=== PATIENT | male | born 1945 | race African-American/Black ===

== ENCOUNTER 2023-06-09 16:10 | Observation (INO) | payer OTHER ==
[2023-06-09 17:21] LABS: #Eosinphils 0.1 thou/uL (0.0-0.7); #Monocytes 0.1 thou/uL (0.11-0.59); #Neutrophils 2.4 thou/uL (1.40-6.50); %Basophils 0.5 % (0.0-1.0); %Eosinophils 3.3 % (0.0-10.0); %Lymphocytes 30.8 % (21.0-51.0); %Monocytes 3.3 % (0.0-10.0); %Neutrophils 61.6 % (42.0-75.0); Hematocrit 33.9 % (42.0-52.0); Hemoglobin 11.9 g/dL (14.0-18.0); Mean Corpuscular HGB CONC 35.1 g/dL (32.0-36.0); Mean Corpuscular Hemoglobin 31.2 pg (27.0-31.0); Mean Platelet Volume 12.4 fL (7.4-10.4); RBC Distribution Width 16.4 % (11.5-14.5); Red Blood Cell (RBC) Count 3.81 mill/uL (4.70-6.10); White Blood Cell (WBC) Count 3.9 10x3/uL (4.8-10.8)
[2023-06-09 17:28] LABS: Platelet Count 77 10x3/uL (130-400)
[2023-06-09 17:36] LABS: Bacteria/HPF None Seen HPF (None Seen); Bilirubin Negative (Negative); Blood, Urine Negative (Negative); CAUTI Indications for Culture Dysuria,urgency,freq; Clarity Clear (Clear); Glucose, Urine (Dipstick) Greater than 1000 mg/dL (Negative); Ketone, Urine Negative (Negative); Leukocyte Negative Leu/uL (Negative); Nitrite Negative (Negative); Protein, Urine (Dipstick) Negative (Neg-Trace); RBC/HPF 0-3 HPF (0-3); Specific Gravity, Urine 1.029 (1.002-1.036); Squamous Epithelial None Seen HPF (0-3); Urobilinogen Normal mg/dL (Less than 2); WBC/HPF 0-3 HPF (0-3)
[2023-06-09 17:44] LABS: Urine Culture Reflex No No
[2023-06-09 17:47] LABS: ALT (SGPT) 21 U/L (8-55); AST (SGOT) 9 U/L (5-34); Albumin 3.8 g/dL (3.4-4.8); Alkaline Phosphatase 152 U/L (40-110); Anion Gap 14 mmol/L (10-20); BUN (Urea Nitrogen) 25 mg/dL (8.4-25.7); Bilirubin, Total 0.4 mg/dL (0.2-1.2); Calc. Creatinine Clearance 0 mL/min (70-130); Calcium 8.8 mg/dL (7.8-10.44); Carbon Dioxide 21 mmol/L (23-31); Chloride 98 mmol/L (98-107); Estimated GFR 31; Globulin 2.5 g/dL (2.4-3.5); Magnesium 2.1 mg/dL (1.6-2.6); Protein, Total 6.3 g/dL (5.8-8.1); Sodium 128 mmol/L (136-145); Troponin I Less than 0.010 ng/mL (< 0.028)
[2023-06-09 17:57] LABS: Glucose 757 mg/dL (83-110)
[2023-06-09 18:02] LABS: Actual Bicarbonate (HCO3v) 19.7 mEq/L (22-28); Base Excess -4.9 mEq/L (-2.0 to +3.0); Calcium, Ionized (venous) 1.12 mmol/L (1.16-1.32); Chloride (VBG) 99 mmol/L (98-106); Hematocrit-VBG 39 % (42.0-52.0); Hemoglobin (Hb) 13.2 g/dL (12.6-17.4); Sodium 130.8 mmol/L (133-146); pH (venous) 7.363 (7.32-7.43)
[2023-06-09] MEDS ORDERED: INSULIN REGULAR IN 0.9 % NACL 100 UNITS/100 ML BAG ONE (18:18)
[2023-06-09] MEDS ORDERED: Glucagon 1 MG/ML KIT IM PRN (20:14)
[2023-06-09] MEDS ORDERED: HumaLOG 300 UNITS/3 ML VIAL SC PRN ×2 (20:14)
[2023-06-09] MEDS ORDERED: Dextrose 5% in Water 1,000 ML IV PRN (20:14)
[2023-06-09] MEDS ORDERED: Calcium Carbonate 500 MG ChewTAB PO PRN (20:14)
[2023-06-09] MEDS ORDERED: Dextrose 50% Abboject 50 ML SYRINGE SLOW IVP PRN (20:14)
[2023-06-09] MEDS ORDERED: Acetaminophen 325 MG TAB PO PRN (20:14)
[2023-06-09] MEDS ORDERED: Ondansetron ODT 4 MG TAB PO PRN (20:14)
[2023-06-09] MEDS ORDERED: traMADol HCl 50 MG TAB PO PRN (20:27)
[2023-06-09] MEDS ORDERED: Lactated Ringer's 1,000 ML IV SCH (20:45)
[2023-06-09] MEDS ORDERED: Rosuvastatin 20 MG TAB PO SCH (21:00)
[2023-06-09] MEDS ORDERED: Famotidine 20 MG TAB PO SCH (21:00)
[2023-06-09] MEDS ORDERED: Mirtazapine 15 MG Soltab PO SCH (21:00)
[2023-06-09] MEDS: Insulin Regular 300 UNITS/3 ML VIAL IVP SCH (22:44)
[2023-06-09] MEDS: Sacubitril 24MG/Valsartan 26 MG TAB PO SCH (22:45)
[2023-06-09 23:21] VITALS: BMI 21.9
[2023-06-10] MEDS: Insulin Regular 300 UNITS/3 ML VIAL IVP SCH (03:04)
[2023-06-10 03:42] VITALS: TEMP 97.8
[2023-06-10 07:54] VITALS: BP 118/65
[2023-06-10] MEDS ORDERED: Sacubitril 24MG/Valsartan 26 MG TAB PO SCH (09:00)
[2023-06-10] MEDS ORDERED: Aspirin 81 mg Enteric Coated Tablet PO SCH (09:00)
[2023-06-10] MEDS ORDERED: Empagliflozin 25 MG TAB PO SCH ×2 (09:00→09:45)
[2023-06-10] MEDS ORDERED: Spironolactone 25 MG TAB PO SCH (09:00)
[2023-06-10] MEDS: Sacubitril 24MG/Valsartan 26 MG TAB PO SCH (09:38)
[2023-06-10] MEDS ORDERED: Insulin Glargine 30 UNITS/0.3 ML VIAL SC SCH (21:00)
[2023-06-11] MEDS ORDERED: Empagliflozin 25 MG TAB PO SCH (09:00)
== END 2023-06-10 11:32 | disposition home or self-care (01) ==
LOC: ERS 16:10 → T4-B 19:52
PROVIDERS: ADMIT Student in an Organized Health Care Education/Training Program; ATTEND Family Medicine
DX: E11.65 Type 2 diabetes mellitus with hyperglycemia (principal); I11.0 Hypertensive heart disease with heart failure; I50.9 Heart failure, unspecified; I25.10 Atherosclerotic heart disease of native coronary artery without angina pectoris; N17.9 Acute kidney failure, unspecified; C95.90 Leukemia, unspecified not having achieved remission; E78.5 Hyperlipidemia, unspecified; Z79.899 Other long term (current) drug therapy; Z79.82 Long term (current) use of aspirin; Z88.8 Allergy status to other drugs, medicaments and biological substances; Z79.4 Long term (current) use of insulin; Z95.1 Presence of aortocoronary bypass graft; Z95.0 Presence of cardiac pacemaker
CPT/HCPCS: 36416; 71045; 80053; 81001; 82010; 82805; 83735; 83930; 84484; 85025; 93005; 96365; G0378; J1815; J7120

== ENCOUNTER 2023-06-22 22:37 | Inpatient (IN) | payer OTHER ==
[2023-06-22 23:15] LABS: #Neutrophils 3.1 thou/uL (1.40-6.50); %Basophils 0.3 % (0.0-1.0); %Lymphocytes 13.4 % (21.0-51.0); %Monocytes 0.5 % (0.0-10.0); %Neutrophils 85.5 % (42.0-75.0); Hematocrit 39.3 % (42.0-52.0); Hemoglobin 13.7 g/dL (14.0-18.0); Mean Corpuscular HGB CONC 34.9 g/dL (32.0-36.0); Mean Corpuscular Hemoglobin 31.4 pg (27.0-31.0); Mean Corpuscular Volume 89.9 fl (78.0-98.0); Mean Platelet Volume 11.3 fL (7.4-10.4); Platelet Count 224 10x3/uL (130-400); RBC Distribution Width 16.4 % (11.5-14.5); Red Blood Cell (RBC) Count 4.37 mill/uL (4.70-6.10); White Blood Cell (WBC) Count 3.7 10x3/uL (4.8-10.8)
[2023-06-22 23:34] LABS: Albumin 4.4 g/dL (3.4-4.8)
[2023-06-22 23:35] LABS: Chloride 100 mmol/L (98-107); Sodium 128 mmol/L (136-145)
[2023-06-22 23:36] LABS: Calcium 10.1 mg/dL (7.8-10.44)
[2023-06-22 23:37] LABS: Globulin 2.8 g/dL (2.4-3.5); Protein, Total 7.2 g/dL (5.8-8.1)
[2023-06-22 23:38] LABS: Anion Gap 19 mmol/L (10-20); Bilirubin, Total 0.6 mg/dL (0.2-1.2); Carbon Dioxide 17 mmol/L (23-31)
[2023-06-22 23:39] LABS: Alkaline Phosphatase 137 U/L (40-110)
[2023-06-22 23:40] LABS: Calc. Creatinine Clearance 0 mL/min (70-130); Estimated GFR 25
[2023-06-22 23:41] LABS: BUN (Urea Nitrogen) 38 mg/dL (8.4-25.7)
[2023-06-22 23:42] LABS: ALT (SGPT) 12 U/L (8-55); AST (SGOT) 9 U/L (5-34)
[2023-06-22 23:42] LABS: Bacteria/HPF None Seen HPF (None Seen); Bilirubin Negative (Negative); Blood, Urine Negative (Negative); CAUTI Indications for Culture Pelvic or flank pain; Clarity Clear (Clear); Glucose, Urine (Dipstick) Greater than 1000 mg/dL (Negative); Ketone, Urine 10 mg/dL (Negative); Leukocyte Negative Leu/uL (Negative); Nitrite Negative (Negative); Protein, Urine (Dipstick) Negative (Neg-Trace); RBC/HPF None Seen HPF (0-3); Squamous Epithelial None Seen HPF (0-3); Urobilinogen Normal mg/dL (Less than 2); WBC/HPF 0-3 HPF (0-3)
[2023-06-22 23:43] LABS: Urine Culture Reflex No No
[2023-06-22 23:45] LABS: Glucose 627 mg/dL (83-110); Potassium 7.5 mmol/L (3.5-5.1)
[2023-06-22] MEDS ORDERED: Calcium Chloride 1 GM/10 ML Abboject SYRINGE ONE (23:49)
[2023-06-22] MEDS ORDERED: Insulin Regular 300 UNITS/3 ML VIAL ONE (23:49)
[2023-06-22] MEDS ORDERED: Sodium Bicarb 50 MEQ/50 ML VIAL ONE (23:49)
[2023-06-22] MEDS ORDERED: Albuterol 2.5 MG/0.5 ML NEB ONE (23:58)
[2023-06-23 00:46] LABS: Phosphorus 5.3 mg/dL (2.3-4.7)
[2023-06-23 00:48] LABS: Lipase 8 U/L (8-78); Magnesium 2.5 mg/dL (1.6-2.6); Troponin I Less than 0.010 ng/mL (< 0.028)
[2023-06-23] MEDS ORDERED: INSULIN REGULAR IN 0.9 % NACL 100 UNITS/100 ML BAG ONE (00:48)
[2023-06-23 01:40] LABS: Base Excess -6.4 mEq/L (-2.0 to +3.0); Calcium, Ionized (venous) 1.36 mmol/L (1.16-1.32); Chloride (VBG) 104 mmol/L (98-106); Hematocrit-VBG 40 % (42.0-52.0); Hemoglobin (Hb) 13.5 g/dL (12.6-17.4); Potassium (VBG) 5.62 mmol/L (3.70-5.30); Sodium 135.9 mmol/L (133-146); pH (venous) 7.284 (7.32-7.43)
[2023-06-23] MEDS ORDERED: Dextrose 5 %-0.45 % NaCl 1,000 ML IV PRN (02:19)
[2023-06-23] MEDS ORDERED: Dextrose 50% Abboject 50 ML SYRINGE SLOW IVP PRN ×2 (02:19→02:23)
[2023-06-23] MEDS ORDERED: Sodium Chloride 0.9% 1,000 ML IV PRN ×4 (02:19)
[2023-06-23] MEDS ORDERED: D5 1/2 NS w/20 mEq KCL 1,000 ML IV PRN (02:19)
[2023-06-23] MEDS ORDERED: NS 0.9% w/ 20 MEQ KCL 1,000 ML IV PRN ×2 (02:19)
[2023-06-23] MEDS ORDERED: Electrolyte Replacement Protocol 1 EACH IVPB ONE (02:19)
[2023-06-23] MEDS ORDERED: Senokot S 8.6-50 MG TAB PO PRN (02:22)
[2023-06-23] MEDS ORDERED: Ondansetron ODT 4 MG TAB PO PRN (02:22)
[2023-06-23] MEDS ORDERED: Acetaminophen 325 MG TAB PO PRN (02:22)
[2023-06-23] MEDS ORDERED: Calcium Carbonate 500 MG ChewTAB PO PRN (02:22)
[2023-06-23] MEDS ORDERED: HumaLOG 300 UNITS/3 ML VIAL SC PRN (02:23)
[2023-06-23] MEDS ORDERED: Dextrose 5% in Water 1,000 ML IV PRN (02:23)
[2023-06-23] MEDS ORDERED: Glucagon 1 MG/ML KIT IM PRN (02:23)
[2023-06-23] MEDS ORDERED: HUMULIN R 100 UNITS in Sodium Chloride 0.9% 100 ML IVPB SCH (02:30)
[2023-06-23 03:41] LABS: Anion Gap 17 mmol/L (10-20); BUN (Urea Nitrogen) 37 mg/dL (8.4-25.7); Calc. Creatinine Clearance 0 mL/min (70-130); Calcium 10.3 mg/dL (7.8-10.44); Carbon Dioxide 19 mmol/L (23-31); Chloride 107 mmol/L (98-107); Estimated GFR 31; Glucose 366 mg/dL (83-110); Potassium 5.9 mmol/L (3.5-5.1); Sodium 137 mmol/L (136-145)
[2023-06-23 03:58] LABS: Troponin I Less than 0.010 ng/mL (< 0.028)
[2023-06-23 06:49] LABS: Chloride 109 mmol/L (98-107); Potassium 5.4 mmol/L (3.5-5.1); Sodium 135 mmol/L (136-145)
[2023-06-23 06:50] LABS: Calcium 9.7 mg/dL (7.8-10.44); Glucose 217 mg/dL (83-110)
[2023-06-23 06:51] LABS: Anion Gap 16 mmol/L (10-20); Carbon Dioxide 15 mmol/L (23-31)
[2023-06-23 06:53] LABS: Calc. Creatinine Clearance 31 mL/min (70-130); Estimated GFR 37
[2023-06-23 06:54] LABS: BUN (Urea Nitrogen) 33 mg/dL (8.4-25.7)
[2023-06-23 06:56] LABS: Troponin I Less than 0.010 ng/mL (< 0.028)
[2023-06-23] MEDS ORDERED: Empagliflozin 25 MG TAB PO SCH (09:00)
[2023-06-23] MEDS ORDERED: Sacubitril 24MG/Valsartan 26 MG TAB PO SCH (09:00)
[2023-06-23] MEDS: Famotidine 20 MG TAB PO SCH (09:13)
[2023-06-23] MEDS ORDERED: Sodium Chloride 0.9% 1,000 ML IV SCH (09:45)
[2023-06-23 11:32] LABS: Anion Gap 14 mmol/L (10-20); BUN (Urea Nitrogen) 31 mg/dL (8.4-25.7); Calc. Creatinine Clearance 38 mL/min (70-130); Calcium 9.7 mg/dL (7.8-10.44); Carbon Dioxide 16 mmol/L (23-31); Chloride 111 mmol/L (98-107); Estimated GFR 46; Glucose 153 mg/dL (83-110); Potassium 5.2 mmol/L (3.5-5.1); Sodium 136 mmol/L (136-145)
[2023-06-23 12:09] LABS: Actual Bicarbonate (HCO3v) 19.1 mEq/L (22-28); Base Excess -4.4 mEq/L (-2.0 to +3.0); Calcium, Ionized (venous) 1.15 mmol/L (1.16-1.32); Chloride (VBG) 108 mmol/L (98-106); Hematocrit-VBG 41 % (42.0-52.0); Hemoglobin (Hb) 13.8 g/dL (12.6-17.4); Sodium 136.7 mmol/L (133-146); pH (venous) 7.409 (7.32-7.43)
[2023-06-23 12:49] LABS: Albumin 3.6 g/dL (3.4-4.8); Anion Gap 12 mmol/L (10-20); BUN (Urea Nitrogen) 29 mg/dL (8.4-25.7); BUN/Creatinine Ratio 19.59; Calc. Creatinine Clearance 39 mL/min (70-130); Calcium 9.7 mg/dL (7.8-10.44); Carbon Dioxide 20 mmol/L (23-31); Chloride 110 mmol/L (98-107); Estimated GFR 48; Glucose 100 mg/dL (83-110); Phosphorus 4.2 mg/dL (2.3-4.7); Potassium 4.6 mmol/L (3.5-5.1); Sodium 137 mmol/L (136-145)
[2023-06-23] MEDS: Sodium Bicarbonate 50 MEQ in Sodium Chloride 0.45% 1,000 ML IV SCH ×2 (13:29→23:05)
[2023-06-23] MEDS: Sodium Bicarbonate Tab 325 MG TAB PO SCH ×2 (15:08→21:15)
[2023-06-23] MEDS: HumaLOG 300 UNITS/3 ML VIAL SC PRN (16:13)
[2023-06-23] MEDS ORDERED: Mirtazapine 15 MG Soltab PO SCH (21:00)
[2023-06-23] MEDS ORDERED: Insulin Glargine 30 UNITS/0.3 ML VIAL SC SCH (21:00)
[2023-06-23] MEDS ORDERED: Rosuvastatin 20 MG TAB PO SCH (21:00)
[2023-06-24] MEDS: HumaLOG 300 UNITS/3 ML VIAL SC PRN ×2 (05:40→13:32)
[2023-06-24 06:10] LABS: #Monocytes 0.1 thou/uL (0.11-0.59); #Neutrophils 1.8 thou/uL (1.40-6.50); %Basophils 0.3 % (0.0-1.0); %Eosinophils 0.6 % (0.0-10.0); %Lymphocytes 42.6 % (21.0-51.0); %Monocytes 2.5 % (0.0-10.0); Hematocrit 35.6 % (42.0-52.0); Hemoglobin 12.3 g/dL (14.0-18.0); Mean Corpuscular HGB CONC 34.6 g/dL (32.0-36.0); Mean Corpuscular Hemoglobin 31.1 pg (27.0-31.0); Mean Corpuscular Volume 90.1 fl (78.0-98.0); Mean Platelet Volume 10.4 fL (7.4-10.4); Platelet Count 163 10x3/uL (130-400); RBC Distribution Width 16.5 % (11.5-14.5); Red Blood Cell (RBC) Count 3.95 mill/uL (4.70-6.10); White Blood Cell (WBC) Count 3.2 10x3/uL (4.8-10.8)
[2023-06-24 06:39] LABS: Anion Gap 11 mmol/L (10-20); BUN (Urea Nitrogen) 22 mg/dL (8.4-25.7); Calc. Creatinine Clearance 43 mL/min (70-130); Carbon Dioxide 22 mmol/L (23-31); Chloride 105 mmol/L (98-107); Estimated GFR 53; Glucose 275 mg/dL (83-110); Potassium 4.5 mmol/L (3.5-5.1); Sodium 133 mmol/L (136-145)
[2023-06-24] MEDS: Sodium Bicarbonate 50 MEQ in Sodium Chloride 0.45% 1,000 ML IV SCH ×2 (09:44→11:07)
[2023-06-24] MEDS: Sodium Bicarbonate Tab 325 MG TAB PO SCH (09:45)
[2023-06-24] MEDS: Famotidine 20 MG TAB PO SCH (09:45)
[2023-06-24 13:00] VITALS: BP 107/62; TEMP 98.2
== END 2023-06-24 14:14 | disposition home or self-care (01) | DRG 638 ==
LOC: ERS 22:37 → CCU 06-23 02:21 → T4-B 06-24 00:59
PROVIDERS: ADMIT Student in an Organized Health Care Education/Training Program; ATTEND Emergency Medicine
DX: E11.10 Type 2 diabetes mellitus with ketoacidosis without coma (principal); C95.90 Leukemia, unspecified not having achieved remission; N17.9 Acute kidney failure, unspecified; E87.1 Hypo-osmolality and hyponatremia; E78.5 Hyperlipidemia, unspecified; E87.5 Hyperkalemia; E83.39 Other disorders of phosphorus metabolism; I11.0 Hypertensive heart disease with heart failure; I25.10 Atherosclerotic heart disease of native coronary artery without angina pectoris; I50.9 Heart failure, unspecified; Z95.1 Presence of aortocoronary bypass graft; Z95.0 Presence of cardiac pacemaker; Z88.8 Allergy status to other drugs, medicaments and biological substances; Z79.82 Long term (current) use of aspirin; Z79.4 Long term (current) use of insulin; Z79.899 Other long term (current) drug therapy
CPT/HCPCS: 36415; 36416; 71045; 74176; 80048; 80053; 81001; 82010; 82248; 82805; 83605; 83615; 83690; 83735; 83930; 84100; 84484; 84550; 85025; 93005; J1642; J1650; J1815; J7042; J7050; J7611

== ENCOUNTER 2023-08-24 09:48 | Day surgery (SDC) | payer OTHER ==
[~2023-08-24 09:48] MED LIST: Acetaminophen 500 MG TAB PO SCH; diphenhydrAMINE 25 MG CAP PO SCH
[2023-08-24] MEDS ORDERED: Acetaminophen 500 MG TAB ONE (11:05)
[2023-08-24 13:57] VITALS: BP 139/61; TEMP 98.2
[2023-08-24] MEDS ORDERED: FLU VACC QS2023(65UP)/MF59C/PF 60 MCG/0.5 ML SYRINGE IM ONE (18:00)
== END 2023-08-24 13:57 | disposition home or self-care (01) ==
LOC: ONC/OP 09:48
PROVIDERS: ATTEND Internal Medicine Hematology & Oncology
DX: D64.9 Anemia, unspecified (principal); D69.6 Thrombocytopenia, unspecified
CPT/HCPCS: 36430; 86850; 86900; 86901; P9016

== ENCOUNTER 2023-09-17 12:38 | Inpatient (IN) | payer OTHER ==
[2023-09-17 13:09] LABS: #Monocytes 0.6 thou/uL (0.11-0.59); %Lymphocytes 48.4 % (21.0-51.0); %Neutrophils 2.4 % (42.0-75.0); Hematocrit 17.6 % (42.0-52.0); Hemoglobin 6.2 g/dL (14.0-18.0); Manual Diff?? YES; Mean Corpuscular HGB CONC 35.2 g/dL (32.0-36.0); Mean Corpuscular Hemoglobin 32.8 pg (27.0-31.0); Mean Corpuscular Volume 93.1 fl (78.0-98.0); Mean Platelet Volume 9.8 fL (7.4-10.4); RBC Distribution Width 15.7 % (11.5-14.5); Red Blood Cell (RBC) Count 1.89 mill/uL (4.70-6.10); White Blood Cell (WBC) Count 1.2 10x3/uL (4.8-10.8)
[2023-09-17 13:31] LABS: ALT (SGPT) Less than 7 U/L (8-55); AST (SGOT) 7 U/L (5-34); Albumin 3.4 g/dL (3.4-4.8); Alkaline Phosphatase 82 U/L (40-110); Anion Gap 15 mmol/L (10-20); BUN (Urea Nitrogen) 23 mg/dL (8.4-25.7); Bilirubin, Total 0.9 mg/dL (0.2-1.2); Calc. Creatinine Clearance 0 mL/min (70-130); Carbon Dioxide 21 mmol/L (23-31); Chloride 107 mmol/L (98-107); Estimated GFR 49; Globulin 2.7 g/dL (2.4-3.5); Glucose 133 mg/dL (83-110); Magnesium 2.2 mg/dL (1.6-2.6); Potassium 4.1 mmol/L (3.5-5.1); Protein, Total 6.1 g/dL (5.8-8.1); Sodium 139 mmol/L (136-145)
[2023-09-17 13:56] LABS: CellaVision Operator ID LAB.KB; Lymphocytes 75 % (21-51); Macrocytosis SLIGHT = 6-15 cells HPF (0-5); Neutrophil 3 % (42-75); Ovalocytes SLIGHT = 2-5 cells HPF (0-1); Platelet Adequacy Comment Significant decrease; Polychromasia SLIGHT = 2-3 cells HPF (0-2); Reflex for Review?? YES; Smudge Cells 5.9 %; Tear Drops SLIGHT = 2-5 cells HPF (0-1); Total Cell Count 101
[2023-09-17 13:58] LABS: Platelet Count 14 10x3/uL (130-400)
[2023-09-17 14:17] LABS: SARS-CoV-2 NAA Rapid Test Not Detected (NotDetected)
[2023-09-17] MEDS ORDERED: Dextrose 50% Abboject 50 ML SYRINGE SLOW IVP PRN (15:07)
[2023-09-17] MEDS ORDERED: Glucagon 1 MG/ML KIT IM PRN (15:07)
[2023-09-17] MEDS ORDERED: Dextrose 5% in Water 1,000 ML IV PRN (15:07)
[2023-09-17 16:00] LABS: Troponin I Less than 0.010 ng/mL (< 0.028)
[2023-09-17 16:06] LABS: Bacteria/HPF None Seen HPF (None Seen); Bilirubin Negative (Negative); Blood, Urine Negative (Negative); CAUTI Indications for Culture Immunosuppressed; Clarity Clear (Clear); Glucose, Urine (Dipstick) Greater than 1000 mg/dL (Negative); Ketone, Urine Trace mg/dL (Negative); Leukocyte Negative Leu/uL (Negative); Nitrite Negative (Negative); Protein, Urine (Dipstick) 30 mg/dL (Neg-Trace); RBC/HPF 0-3 HPF (0-3); Specific Gravity, Urine 1.019 (1.002-1.036); Squamous Epithelial None Seen HPF (0-3); Urobilinogen Normal mg/dL (Less than 2); WBC/HPF 0-3 HPF (0-3); pH, Urine 5.5 (5.0-9.0)
[2023-09-17 16:08] LABS: Urine Culture Reflex Yes Yes
[2023-09-17 16:41] VITALS: BMI 22.2
[2023-09-17 23:19] LABS: Troponin I Less than 0.010 ng/mL (< 0.028)
[2023-09-18 03:53] LABS: Hematocrit 15.1 % (42.0-52.0); Hemoglobin 5.3 g/dL (14.0-18.0); Manual Diff?? YES; Mean Corpuscular HGB CONC 35.1 g/dL (32.0-36.0); Mean Corpuscular Hemoglobin 31.9 pg (27.0-31.0); Mean Platelet Volume 9.5 fL (7.4-10.4); Red Blood Cell (RBC) Count 1.66 mill/uL (4.70-6.10); White Blood Cell (WBC) Count 0.8 10x3/uL (4.8-10.8)
[2023-09-18 04:14] LABS: Hemoglobin A1c 9.5 % (4.0-6.0)
[2023-09-18 04:24] LABS: Anion Gap 12 mmol/L (10-20); BUN (Urea Nitrogen) 20 mg/dL (8.4-25.7); Calc. Creatinine Clearance 48 mL/min (70-130); Calcium 8.4 mg/dL (7.8-10.44); Carbon Dioxide 22 mmol/L (23-31); Cardiac Risk 4.2 (Less than 4.5); Chloride 108 mmol/L (98-107); Cholesterol 110 mg/dl (< 200 Desired); Estimated GFR 57; Glucose 126 mg/dL (83-110); HDL Cholesterol 26 mg/dL (>60 Neg Risk); LDL Cholesterol, Calculated 63 mg/dL; Potassium 4.2 mmol/L (3.5-5.1); Sodium 138 mmol/L (136-145); Triglycerides 103 mg/dL (Less than 150)
[2023-09-18 04:38] LABS: Delete Auto Diff?? YES; Platelet Count 36 10x3/uL (130-400)
[2023-09-18 07:45] LABS: CellaVision Operator ID LAB.CMB; Elliptocytes SLIGHT = 2-5 cells HPF (0-1); Eosinophils 1 % (0-10); Lymphocytes 63 % (21-51); Monocytes 2 % (0-10); Neutrophil 3 % (42-75); Platelet Adequacy Comment Significant decrease; Polychromasia SLIGHT = 2-3 cells HPF (0-2); Reactive Lymphocytes 3 % (0-10); Smudge Cells 5.8 %; Total Cell Count 103
[2023-09-18] MEDS ORDERED: FLU VACC QS2023(65UP)/MF59C/PF 60 MCG/0.5 ML SYRINGE IM ONE (09:00)
[2023-09-18] MEDS ORDERED: Aspirin 81 mg Enteric Coated Tablet PO SCH (09:00)
[2023-09-18] MEDS ORDERED: Pantoprazole 40 MG VIAL IVP SCH (09:15)
[2023-09-18 09:26] LABS: Hematocrit 18.2 % (42.0-52.0); Hemoglobin 6.5 g/dL (14.0-18.0)
[2023-09-18 09:28] LABS: Platelet Count 31 10x3/uL (130-400)
[2023-09-18] MEDS: Mirtazapine 15 MG TAB PO SCH (20:02)
[2023-09-18] MEDS: Pantoprazole 40 MG VIAL IVP SCH (20:02)
[2023-09-19 04:40] LABS: Hematocrit 21.2 % (42.0-52.0); Hemoglobin 7.6 g/dL (14.0-18.0); Manual Diff?? YES; Mean Corpuscular HGB CONC 35.8 g/dL (32.0-36.0); Mean Corpuscular Hemoglobin 31.4 pg (27.0-31.0); Mean Platelet Volume 9.9 fL (7.4-10.4); RBC Distribution Width 15.6 % (11.5-14.5); Red Blood Cell (RBC) Count 2.42 mill/uL (4.70-6.10); White Blood Cell (WBC) Count 0.7 10x3/uL (4.8-10.8)
[2023-09-19 04:47] LABS: Delete Auto Diff?? YES; Mean Corpuscular Volume 87.6 fl (78.0-98.0); Platelet Count 33 10x3/uL (130-400)
[2023-09-19 05:00] LABS: ALT (SGPT) Less than 7 U/L (8-55); AST (SGOT) 3 U/L (5-34); Albumin 2.7 g/dL (3.4-4.8); Alkaline Phosphatase 67 U/L (40-110); Anion Gap 13 mmol/L (10-20); BUN (Urea Nitrogen) 16 mg/dL (8.4-25.7); Bilirubin, Direct 0.3 mg/dL (0.1-0.3); Bilirubin, Total 0.8 mg/dL (0.2-1.2); Calc. Creatinine Clearance 48 mL/min (70-130); Calcium 8.7 mg/dL (7.8-10.44); Carbon Dioxide 22 mmol/L (23-31); Chloride 109 mmol/L (98-107); Estimated GFR 56; Glucose 114 mg/dL (83-110); Magnesium 1.9 mg/dL (1.6-2.6); Potassium 3.9 mmol/L (3.5-5.1); Protein, Total 5.2 g/dL (5.8-8.1); Sodium 140 mmol/L (136-145)
[2023-09-19 06:09] LABS: CellaVision Operator ID lab.abc; Lymphocytes 52 % (21-51); Neutrophil 5 % (42-75); Platelet Adequacy Comment Platelets Decreased; Polychromasia SLIGHT = 2-3 cells HPF (0-2); Reactive Lymphocytes 3 % (0-10); Tear Drops SLIGHT = 2-5 cells HPF (0-1); Total Cell Count 105
[2023-09-19] MEDS: Pantoprazole 40 MG VIAL IVP SCH ×2 (11:43→21:17)
[2023-09-19] MEDS: Mirtazapine 15 MG TAB PO SCH (21:17)
[2023-09-20 05:59] LABS: Hematocrit 21.7 % (42.0-52.0); Hemoglobin 7.8 g/dL (14.0-18.0); Manual Diff?? YES; Mean Corpuscular HGB CONC 35.9 g/dL (32.0-36.0); Mean Corpuscular Hemoglobin 31.2 pg (27.0-31.0); Mean Corpuscular Volume 86.8 fl (78.0-98.0); Mean Platelet Volume 10.8 fL (7.4-10.4); RBC Distribution Width 15.1 % (11.5-14.5); White Blood Cell (WBC) Count 0.7 10x3/uL (4.8-10.8)
[2023-09-20 06:12] LABS: Delete Auto Diff?? YES
[2023-09-20 06:13] LABS: Platelet Count 25 10x3/uL (130-400)
[2023-09-20 06:21] LABS: Anion Gap 14 mmol/L (10-20); BUN (Urea Nitrogen) 16 mg/dL (8.4-25.7); Calc. Creatinine Clearance 46 mL/min (70-130); Calcium 8.8 mg/dL (7.8-10.44); Carbon Dioxide 22 mmol/L (23-31); Chloride 108 mmol/L (98-107); Estimated GFR 53; Glucose 113 mg/dL (83-110); Magnesium 1.9 mg/dL (1.6-2.6); Potassium 3.9 mmol/L (3.5-5.1); Sodium 140 mmol/L (136-145)
[2023-09-20 06:42] LABS: Anisocytosis MODERATE=16-30 cells HPF (0-5); CellaVision Operator ID LAB.JMM; Lymphocytes 69 % (21-51); Macrocytosis SLIGHT = 6-15 cells HPF (0-5); Neutrophil 1 % (42-75); Ovalocytes SLIGHT = 2-5 cells HPF (0-1); Platelet Adequacy Comment Significant decrease; Polychromasia SLIGHT = 2-3 cells HPF (0-2); Reactive Lymphocytes 2 % (0-10); Smudge Cells 4.8 %; Tear Drops SLIGHT = 2-5 cells HPF (0-1); Total Cell Count 105
[2023-09-20] MEDS: Pantoprazole 40 MG VIAL IVP SCH ×2 (12:14→20:22)
[2023-09-20] MEDS: Rosuvastatin 20 MG TAB PO SCH (20:22)
[2023-09-20 21:06] LABS: Hematocrit 21.9 % (42.0-52.0); Hemoglobin 7.7 g/dL (14.0-18.0)
[2023-09-21 04:36] LABS: Hemoglobin 8.5 g/dL (14.0-18.0); Manual Diff?? YES; Mean Corpuscular HGB CONC 35.4 g/dL (32.0-36.0); Mean Corpuscular Hemoglobin 30.9 pg (27.0-31.0); Mean Corpuscular Volume 87.3 fl (78.0-98.0); Mean Platelet Volume 8.1 fL (7.4-10.4); RBC Distribution Width 14.4 % (11.5-14.5); Red Blood Cell (RBC) Count 2.75 mill/uL (4.70-6.10); White Blood Cell (WBC) Count 0.6 10x3/uL (4.8-10.8)
[2023-09-21 05:06] LABS: Delete Auto Diff?? YES; Platelet Count 19 10x3/uL (130-400)
[2023-09-21 05:07] LABS: Anion Gap 13 mmol/L (10-20); BUN (Urea Nitrogen) 16 mg/dL (8.4-25.7); Calc. Creatinine Clearance 47 mL/min (70-130); Calcium 8.6 mg/dL (7.8-10.44); Carbon Dioxide 22 mmol/L (23-31); Chloride 109 mmol/L (98-107); Estimated GFR 55; Glucose 120 mg/dL (83-110); Magnesium 1.7 mg/dL (1.6-2.6); Potassium 3.8 mmol/L (3.5-5.1); Sodium 140 mmol/L (136-145)
[2023-09-21 05:50] LABS: CellaVision Operator ID lab.abc; Lymphocytes 57 % (21-51); Monocytes 1 % (0-10); Neutrophil 5 % (42-75); Platelet Adequacy Comment Significant decrease; Reactive Lymphocytes 1 % (0-10); Smudge Cells 1.9 %; Tear Drops SLIGHT = 2-5 cells HPF (0-1); Total Cell Count 105
[2023-09-21] MEDS: Fluconazole 100 MG TAB PO SCH (10:20)
[2023-09-21] MEDS: Acyclovir 400 mg Tablet PO SCH (10:21)
[2023-09-21] MEDS: Pantoprazole 40 MG VIAL IVP SCH ×2 (10:21→21:12)
[2023-09-21] MEDS: HumaLOG 300 UNITS/3 ML VIAL SC PRN (20:26)
[2023-09-21] MEDS ORDERED: Rosuvastatin 20 MG TAB PO SCH (21:00)
[2023-09-21] MEDS: Rosuvastatin 20 MG TAB PO SCH (21:12)
[2023-09-21] MEDS: Acetaminophen 325 MG TAB PO PRN (21:12)
[2023-09-21] MEDS ORDERED: Cefepime 1 GM in Sodium Chloride 0.9% 100 ML IVPB SCH (21:30)
[2023-09-21] MEDS ORDERED: Vancomycin (BATCH) 1.5 GM in Premix 1 BAG IVPB SCH (22:00)
[2023-09-21] MEDS ORDERED: Gabapentin 100 MG CAP PO SCH (23:30)
[2023-09-22] MEDS ORDERED: Acetaminophen 500 MG TAB PO SCH (00:45)
[2023-09-22 05:02] LABS: Hematocrit 23.3 % (42.0-52.0); Hemoglobin 8.2 g/dL (14.0-18.0); Manual Diff?? YES; Mean Corpuscular HGB CONC 35.2 g/dL (32.0-36.0); Mean Corpuscular Hemoglobin 31.2 pg (27.0-31.0); Mean Corpuscular Volume 88.6 fl (78.0-98.0); Mean Platelet Volume 7.8 fL (7.4-10.4); RBC Distribution Width 14.4 % (11.5-14.5); Red Blood Cell (RBC) Count 2.63 mill/uL (4.70-6.10); White Blood Cell (WBC) Count 0.6 10x3/uL (4.8-10.8)
[2023-09-22 05:28] LABS: Anion Gap 12 mmol/L (10-20); BUN (Urea Nitrogen) 20 mg/dL (8.4-25.7); Calc. Creatinine Clearance 40 mL/min (70-130); Calcium 8.6 mg/dL (7.8-10.44); Carbon Dioxide 21 mmol/L (23-31); Chloride 107 mmol/L (98-107); Estimated GFR 45; Glucose 147 mg/dL (83-110); Magnesium 1.8 mg/dL (1.6-2.6); Potassium 3.4 mmol/L (3.5-5.1); Sodium 137 mmol/L (136-145)
[2023-09-22 06:09] LABS: Delete Auto Diff?? YES; Platelet Count 12 10x3/uL (130-400)
[2023-09-22 06:41] LABS: Anisocytosis SLIGHT = 6-15 cells HPF (0-5); CellaVision Operator ID LAB.JMM; Elliptocytes SLIGHT = 2-5 cells HPF (0-1); Lymphocytes 60 % (21-51); Monocytes 4 % (0-10); Neutrophil 2 % (42-75); Nucleated RBC (Manual Ct) 1 % (0); Ovalocytes SLIGHT = 2-5 cells HPF (0-1); Platelet Adequacy Comment Significant decrease; Poikilocytosis MODERATE=16-30 cells HPF (0-5); Polychromasia SLIGHT = 2-3 cells HPF (0-2); RBC Morphology 2; Reactive Lymphocytes 2 % (0-10); Smudge Cells 5.3 %; Tear Drops SLIGHT = 2-5 cells HPF (0-1); Total Cell Count 95
[2023-09-22] MEDS: Fluconazole 100 MG TAB PO SCH (08:24)
[2023-09-22] MEDS: Pantoprazole 40 MG VIAL IVP SCH ×2 (08:24→20:46)
[2023-09-22] MEDS: Acyclovir 400 mg Tablet PO SCH (08:24)
[2023-09-22] MEDS: Cefepime 1 GM in Sodium Chloride 0.9% 100 ML IVPB SCH ×2 (08:25→20:46)
[2023-09-22] MEDS ORDERED: Atovaquone 750 MG/5 ML UDCUP PO SCH (09:00)
[2023-09-22] MEDS: Atovaquone 750 MG/5 ML UDCUP PO SCH (10:22)
[2023-09-22] MEDS: Acetaminophen 325 MG TAB PO PRN (17:19)
[2023-09-22] MEDS: Rosuvastatin 20 MG TAB PO SCH (20:46)
[2023-09-22] MEDS: Vancomycin 1 GM in Premix 1 BAG IVPB SCH (21:25)
[2023-09-23 04:45] LABS: Bilirubin Negative (Negative); Blood, Urine Negative (Negative); CAUTI Indications for Culture Fever or rigors; Clarity Turbid (Clear); Glucose, Urine (Dipstick) 100 mg/dL (Negative); Ketone, Urine Negative (Negative); Leukocyte Negative Leu/uL (Negative); Nitrite Negative (Negative); Protein, Urine (Dipstick) 70 mg/dL (Neg-Trace); RBC/HPF 0-3 HPF (0-3); Specific Gravity, Urine 1.012 (1.002-1.036); Squamous Epithelial 0-3 HPF (0-3); Urobilinogen Normal mg/dL (Less than 2)
[2023-09-23 04:49] LABS: Bacteria/HPF Rare-Few HPF (None Seen)
[2023-09-23 04:50] LABS: Urine Culture Reflex No No
[2023-09-23 05:12] LABS: Hematocrit 21.8 % (42.0-52.0); Hemoglobin 7.8 g/dL (14.0-18.0); Manual Diff?? YES; Mean Corpuscular HGB CONC 35.8 g/dL (32.0-36.0); Mean Corpuscular Hemoglobin 31.2 pg (27.0-31.0); Mean Corpuscular Volume 87.2 fl (78.0-98.0); Mean Platelet Volume 12.1 fL (7.4-10.4); RBC Distribution Width 14.1 % (11.5-14.5); White Blood Cell (WBC) Count 0.9 10x3/uL (4.8-10.8)
[2023-09-23 05:28] LABS: Platelet Count 8 10x3/uL (130-400)
[2023-09-23 05:29] LABS: Delete Auto Diff?? YES
[2023-09-23 05:59] LABS: CellaVision Operator ID lab.abc; Elliptocytes SLIGHT = 2-5 cells HPF (0-1); Eosinophils 1 % (0-10); Large Platelets 2.8 % (0-5); Lymphocytes 46 % (21-51); Monocytes 1 % (0-10); Neutrophil 1 % (42-75); Platelet Adequacy Comment Significant decrease; Polychromasia SLIGHT = 2-3 cells HPF (0-2); Smudge Cells 6.6 %; Tear Drops SLIGHT = 2-5 cells HPF (0-1); Total Cell Count 106
[2023-09-23 06:07] LABS: Anion Gap 13 mmol/L (10-20); BUN (Urea Nitrogen) 18 mg/dL (8.4-25.7); Calc. Creatinine Clearance 42 mL/min (70-130); Calcium 8.6 mg/dL (7.8-10.44); Carbon Dioxide 20 mmol/L (23-31); Chloride 107 mmol/L (98-107); Estimated GFR 48; Glucose 141 mg/dL (83-110); Magnesium 1.8 mg/dL (1.6-2.6); Potassium 3.4 mmol/L (3.5-5.1); Sodium 137 mmol/L (136-145)
[2023-09-23] MEDS: Acyclovir 400 mg Tablet PO SCH (09:23)
[2023-09-23] MEDS: Atovaquone 750 MG/5 ML UDCUP PO SCH (09:24)
[2023-09-23] MEDS: Fluconazole 100 MG TAB PO SCH (09:25)
[2023-09-23] MEDS: Cefepime 1 GM in Sodium Chloride 0.9% 100 ML IVPB SCH ×2 (09:25→20:24)
[2023-09-23] MEDS: Pantoprazole 40 MG VIAL IVP SCH ×2 (09:25→20:23)
[2023-09-23] MEDS: Acetaminophen 325 MG TAB PO PRN (14:39)
[2023-09-23] MEDS: Rosuvastatin 20 MG TAB PO SCH (20:23)
[2023-09-23 21:18] LABS: Vancomycin, Trough 9.8 ug/mL
[2023-09-23] MEDS: Vancomycin 1 GM in Premix 1 BAG IVPB SCH (21:43)
[2023-09-23] MEDS ORDERED: Vancomycin HCl 500 MG in Sodium Chloride 0.9% 100 ML IVPB SCH (23:00)
[2023-09-24 06:46] LABS: Hemoglobin 7.9 g/dL (14.0-18.0); Manual Diff?? YES; Mean Corpuscular HGB CONC 35.9 g/dL (32.0-36.0); Mean Corpuscular Hemoglobin 31.2 pg (27.0-31.0); RBC Distribution Width 14.1 % (11.5-14.5); Red Blood Cell (RBC) Count 2.53 mill/uL (4.70-6.10); White Blood Cell (WBC) Count 1.1 10x3/uL (4.8-10.8)
[2023-09-24 06:48] LABS: Delete Auto Diff?? YES; Platelet Count 27 10x3/uL (130-400)
[2023-09-24 07:09] LABS: Anion Gap 14 mmol/L (10-20); BUN (Urea Nitrogen) 16 mg/dL (8.4-25.7); Calc. Creatinine Clearance 41 mL/min (70-130); Calcium 8.7 mg/dL (7.8-10.44); Carbon Dioxide 20 mmol/L (23-31); Chloride 107 mmol/L (98-107); Estimated GFR 46; Glucose 150 mg/dL (83-110); Magnesium 1.8 mg/dL (1.6-2.6); Potassium 3.3 mmol/L (3.5-5.1); Sodium 138 mmol/L (136-145)
[2023-09-24 08:18] LABS: Lymphocytes 56 % (21-51); Monocytes 26 % (0-10)
[2023-09-24 08:19] LABS: Other Cell Types 18; Platelet Adequacy Comment Significant decrease; Polychromasia SLIGHT = 2-3 cells (100X) (0-2/hpf)
[2023-09-24] MEDS: Pantoprazole 40 MG VIAL IVP SCH ×2 (08:55→20:39)
[2023-09-24] MEDS: Acyclovir 400 mg Tablet PO SCH (08:56)
[2023-09-24] MEDS: Fluconazole 100 MG TAB PO SCH (08:56)
[2023-09-24] MEDS: Atovaquone 750 MG/5 ML UDCUP PO SCH (08:57)
[2023-09-24] MEDS: Cefepime 1 GM in Sodium Chloride 0.9% 100 ML IVPB SCH ×2 (08:57→20:39)
[2023-09-24] MEDS ORDERED: Acetaminophen 325 MG TAB ONE (17:35)
[2023-09-24] MEDS: HumaLOG 300 UNITS/3 ML VIAL SC PRN (17:49)
[2023-09-24] MEDS: Acetaminophen 325 MG TAB PO PRN (20:38)
[2023-09-24] MEDS: Rosuvastatin 20 MG TAB PO SCH (20:38)
[2023-09-24] MEDS ORDERED: Acetaminophen 325 MG TAB PO SCH (21:00)
[2023-09-24] MEDS: Vancomycin (BATCH) 1.5 GM in Premix 1 BAG IVPB SCH (23:53)
[2023-09-25 06:29] LABS: Hematocrit 21.6 % (42.0-52.0); Hemoglobin 7.6 g/dL (14.0-18.0); Manual Diff?? YES; Mean Corpuscular HGB CONC 35.2 g/dL (32.0-36.0); Mean Corpuscular Hemoglobin 30.6 pg (27.0-31.0); Mean Corpuscular Volume 87.1 fl (78.0-98.0); Mean Platelet Volume 11.5 fL (7.4-10.4); Red Blood Cell (RBC) Count 2.48 mill/uL (4.70-6.10); White Blood Cell (WBC) Count 1.4 10x3/uL (4.8-10.8)
[2023-09-25 06:34] LABS: Delete Auto Diff?? YES; Platelet Count 21 10x3/uL (130-400)
[2023-09-25 06:56] LABS: Anion Gap 11 mmol/L (10-20); BUN (Urea Nitrogen) 16 mg/dL (8.4-25.7); Calc. Creatinine Clearance 40 mL/min (70-130); Calcium 8.7 mg/dL (7.8-10.44); Carbon Dioxide 22 mmol/L (23-31); Chloride 107 mmol/L (98-107); Estimated GFR 45; Glucose 153 mg/dL (83-110); Magnesium 1.7 mg/dL (1.6-2.6); Potassium 3.3 mmol/L (3.5-5.1); Sodium 137 mmol/L (136-145)
[2023-09-25 07:42] LABS: Burr Cells SLIGHT = 2-5 cells HPF (0-1); CellaVision Operator ID LAB.NR; Elliptocytes SLIGHT = 2-5 cells HPF (0-1); Lymphocytes 49 % (21-51); Monocytes 3 % (0-10); Neutrophil 1 % (42-75); Platelet Adequacy Comment Significant decrease; Polychromasia SLIGHT = 2-3 cells HPF (0-2); Reactive Lymphocytes 5 % (0-10); Smudge Cells 4.8 %; Total Cell Count 105
[2023-09-25] MEDS: Cefepime 1 GM in Sodium Chloride 0.9% 100 ML IVPB SCH ×2 (09:30→20:33)
[2023-09-25] MEDS: Acyclovir 400 mg Tablet PO SCH (09:31)
[2023-09-25] MEDS: Atovaquone 750 MG/5 ML UDCUP PO SCH (09:32)
[2023-09-25] MEDS: Fluconazole 100 MG TAB PO SCH (09:33)
[2023-09-25] MEDS: Pantoprazole 40 MG VIAL IVP SCH ×2 (09:34→20:34)
[2023-09-25] MEDS: Acetaminophen 325 MG TAB PO PRN (11:02)
[2023-09-25] MEDS ORDERED: Ondansetron PF 4 MG/2 ML Vial IVP PRN (12:24)
[2023-09-25] MEDS: Rosuvastatin 20 MG TAB PO SCH (20:33)
[2023-09-25] MEDS: Atorvastatin Calcium 20 MG TAB PO SCH (20:53)
[2023-09-25 21:36] LABS: Vancomycin, Trough 18.4 ug/mL
[2023-09-25] MEDS: Vancomycin (BATCH) 1.5 GM in Premix 1 BAG IVPB SCH (22:21)
[2023-09-26 04:44] LABS: Hematocrit 22.1 % (42.0-52.0); Hemoglobin 7.6 g/dL (14.0-18.0); Manual Diff?? YES; Mean Corpuscular HGB CONC 34.4 g/dL (32.0-36.0); Mean Corpuscular Hemoglobin 30.4 pg (27.0-31.0); Mean Corpuscular Volume 88.4 fl (78.0-98.0); Mean Platelet Volume 11.9 fL (7.4-10.4); White Blood Cell (WBC) Count 1.3 10x3/uL (4.8-10.8)
[2023-09-26 04:45] LABS: Delete Auto Diff?? YES; Platelet Count 16 10x3/uL (130-400)
[2023-09-26 05:11] LABS: Anion Gap 14 mmol/L (10-20); BUN (Urea Nitrogen) 19 mg/dL (8.4-25.7); Calc. Creatinine Clearance 36 mL/min (70-130); Carbon Dioxide 20 mmol/L (23-31); Chloride 108 mmol/L (98-107); Estimated GFR 39; Glucose 166 mg/dL (83-110); Potassium 3.3 mmol/L (3.5-5.1); Sodium 139 mmol/L (136-145)
[2023-09-26 06:00] LABS: CellaVision Operator ID LAB.CLH1; Hypochromia SLIGHT = 6-15 cells HPF (0-5); Lymphocytes 38 % (21-51); Monocytes 12 % (0-10); Ovalocytes SLIGHT = 2-5 cells HPF (0-1); Platelet Adequacy Comment Platelets Decreased; Polychromasia SLIGHT = 2-3 cells HPF (0-2); Reactive Lymphocytes 7 % (0-10)
[2023-09-26] MEDS ORDERED: Potassium Chloride 20 MEQ TAB PO SCH (09:00)
[2023-09-26] MEDS: Atovaquone 750 MG/5 ML UDCUP PO SCH (10:08)
[2023-09-26] MEDS: Acyclovir 400 mg Tablet PO SCH (10:10)
[2023-09-26] MEDS: Azithromycin 250 MG TAB PO SCH (10:11)
[2023-09-26] MEDS: Pantoprazole 40 MG VIAL IVP SCH ×2 (10:11→22:29)
[2023-09-26] MEDS: Fluconazole 100 MG TAB PO SCH (10:11)
[2023-09-26] MEDS: Sodium Chloride 0.9% 1,000 ML IV SCH ×2 (10:12→22:28)
[2023-09-26] MEDS: Rosuvastatin 20 MG TAB PO SCH (22:29)
[2023-09-27] MEDS: Atorvastatin Calcium 20 MG TAB PO SCH ×2 (01:24→20:49)
[2023-09-27 06:42] LABS: Hematocrit 18.9 % (42.0-52.0); Hemoglobin 6.6 g/dL (14.0-18.0); Manual Diff?? YES; Mean Corpuscular HGB CONC 34.9 g/dL (32.0-36.0); Mean Corpuscular Hemoglobin 30.8 pg (27.0-31.0); Mean Corpuscular Volume 88.3 fl (78.0-98.0); Mean Platelet Volume 12.4 fL (7.4-10.4); Red Blood Cell (RBC) Count 2.14 mill/uL (4.70-6.10); White Blood Cell (WBC) Count 1.6 10x3/uL (4.8-10.8)
[2023-09-27 06:44] LABS: Delete Auto Diff?? YES; Platelet Count 10 10x3/uL (130-400)
[2023-09-27 07:04] LABS: Anion Gap 13 mmol/L (10-20); BUN (Urea Nitrogen) 19 mg/dL (8.4-25.7); Calc. Creatinine Clearance 36 mL/min (70-130); Calcium 8.7 mg/dL (7.8-10.44); Carbon Dioxide 21 mmol/L (23-31); Chloride 110 mmol/L (98-107); Estimated GFR 39; Glucose 157 mg/dL (83-110); Sodium 141 mmol/L (136-145)
[2023-09-27 08:19] LABS: Burr Cells SLIGHT = 2-5 cells HPF (0-1); CellaVision Operator ID LAB.GE; Lymphocytes 36 % (21-51); Monocytes 1 % (0-10); Ovalocytes SLIGHT = 2-5 cells HPF (0-1); Platelet Adequacy Comment Significant decrease; Polychromasia SLIGHT = 2-3 cells HPF (0-2); Reactive Lymphocytes 3 % (0-10)
[2023-09-27] MEDS: Fluconazole 100 MG TAB PO SCH (08:26)
[2023-09-27] MEDS: Atovaquone 750 MG/5 ML UDCUP PO SCH (08:27)
[2023-09-27] MEDS: Acyclovir 400 mg Tablet PO SCH (08:27)
[2023-09-27] MEDS: Pantoprazole 40 MG VIAL IVP SCH ×2 (08:27→20:50)
[2023-09-27] MEDS: Azithromycin 250 MG TAB PO SCH (08:27)
[2023-09-27] MEDS ORDERED: Potassium Chloride 20 MEQ TAB PO SCH (13:30)
[2023-09-27] MEDS ORDERED: Vancomycin (BATCH) 1.25 GM in Premix 1 BAG IVPB SCH (15:00)
[2023-09-27] MEDS ORDERED: DAPTOmycin 700 MG in Sodium Chloride 0.9% 50 ML IVPB SCH (16:00)
[2023-09-27] MEDS: Sodium Chloride 0.9% 1,000 ML IV SCH (17:45)
[2023-09-27] MEDS: SODIUM CHLORIDE 0.9% IVPB SCH (19:25)
[2023-09-27] MEDS: DAPTOMYCIN IVPB SCH (19:25)
[2023-09-27] MEDS: Rosuvastatin 20 MG TAB PO SCH (20:49)
[2023-09-27] MEDS: Mirtazapine 15 MG TAB PO SCH (20:49)
[2023-09-27] MEDS ORDERED: Vancomycin 1 GM in Premix 1 BAG IVPB SCH (21:00)
[2023-09-28] MEDS: HumaLOG 300 UNITS/3 ML VIAL SC PRN ×2 (01:29→06:45)
[2023-09-28 06:04] LABS: Hematocrit 21.8 % (42.0-52.0); Hemoglobin 7.5 g/dL (14.0-18.0); Manual Diff?? YES; Mean Corpuscular HGB CONC 34.4 g/dL (32.0-36.0); Mean Corpuscular Hemoglobin 29.9 pg (27.0-31.0); Mean Corpuscular Volume 86.9 fl (78.0-98.0); Mean Platelet Volume 11.4 fL (7.4-10.4); RBC Distribution Width 14.5 % (11.5-14.5); Red Blood Cell (RBC) Count 2.51 mill/uL (4.70-6.10); White Blood Cell (WBC) Count 2.5 10x3/uL (4.8-10.8)
[2023-09-28 06:06] LABS: Delete Auto Diff?? YES; Platelet Count 25 10x3/uL (130-400)
[2023-09-28 06:27] LABS: Anion Gap 12 mmol/L (10-20); BUN (Urea Nitrogen) 17 mg/dL (8.4-25.7); Calc. Creatinine Clearance 33 mL/min (70-130); Calcium 8.8 mg/dL (7.8-10.44); Carbon Dioxide 22 mmol/L (23-31); Chloride 108 mmol/L (98-107); Estimated GFR 35; Glucose 183 mg/dL (83-110); Sodium 139 mmol/L (136-145)
[2023-09-28 06:40] LABS: CellaVision Operator ID LAB.CLH1; Hypochromia MODERATE=16-30 cells HPF (0-5); Large Platelets 0.9 % (0-5); Lymphocytes 29 % (21-51); Monocytes 8 % (0-10); Myelocyte 1 % (0-0); Neutrophil 2 % (42-75); Platelet Adequacy Comment Platelets Decreased; Polychromasia SLIGHT = 2-3 cells HPF (0-2); Reactive Lymphocytes 14 % (0-10); Total Cell Count 110
[2023-09-28] MEDS ORDERED: Potassium Chloride 20 MEQ TAB PO SCH (07:45)
[2023-09-28] MEDS: Atovaquone 750 MG/5 ML UDCUP PO SCH (08:49)
[2023-09-28] MEDS: Acyclovir 400 mg Tablet PO SCH (08:49)
[2023-09-28] MEDS: Fluconazole 100 MG TAB PO SCH (08:49)
[2023-09-28] MEDS: Pantoprazole 40 MG VIAL IVP SCH (08:55)
[2023-09-28] MEDS: Dronabinol 2.5 MG CAP PO SCH (18:37)
[2023-09-28] MEDS: SODIUM CHLORIDE 0.9% IVPB SCH (18:57)
[2023-09-28] MEDS: DAPTOMYCIN IVPB SCH (18:57)
[2023-09-28] MEDS: Rosuvastatin 20 MG TAB PO SCH (20:29)
[2023-09-28] MEDS: Mirtazapine 15 MG TAB PO SCH (20:29)
[2023-09-28] MEDS ORDERED: HumaLOG 300 UNITS/3 ML VIAL SC PRN (21:45)
[2023-09-29] MEDS: HumaLOG 300 UNITS/3 ML VIAL SC PRN ×3 (06:07→17:31)
[2023-09-29] MEDS: Acyclovir 400 mg Tablet PO SCH (09:01)
[2023-09-29] MEDS: Fluconazole 100 MG TAB PO SCH (09:01)
[2023-09-29] MEDS: Atovaquone 750 MG/5 ML UDCUP PO SCH (09:02)
[2023-09-29 09:03] LABS: Hematocrit 21.5 % (42.0-52.0); Hemoglobin 7.6 g/dL (14.0-18.0); Manual Diff?? YES; Mean Corpuscular HGB CONC 35.3 g/dL (32.0-36.0); Mean Corpuscular Hemoglobin 30.6 pg (27.0-31.0); Mean Corpuscular Volume 86.7 fl (78.0-98.0); Mean Platelet Volume 10.4 fL (7.4-10.4); RBC Distribution Width 14.5 % (11.5-14.5); Red Blood Cell (RBC) Count 2.48 mill/uL (4.70-6.10); White Blood Cell (WBC) Count 3.5 10x3/uL (4.8-10.8)
[2023-09-29 09:08] LABS: Delete Auto Diff?? YES; Platelet Count 15 10x3/uL (130-400)
[2023-09-29 09:22] LABS: Anion Gap 13 mmol/L (10-20); BUN (Urea Nitrogen) 20 mg/dL (8.4-25.7); Calc. Creatinine Clearance 29 mL/min (70-130); Calcium 8.9 mg/dL (7.8-10.44); Carbon Dioxide 22 mmol/L (23-31); Chloride 110 mmol/L (98-107); Estimated GFR 31; Glucose 213 mg/dL (83-110); Potassium 2.9 mmol/L (3.5-5.1); Sodium 142 mmol/L (136-145)
[2023-09-29 10:08] LABS: CellaVision Operator ID LAB.GE; Lymphocytes 18 % (21-51); Monocytes 3 % (0-10); Nucleated RBC (Manual Ct) 1 % (0); Platelet Adequacy Comment Significant decrease; Polychromasia SLIGHT = 2-3 cells HPF (0-2)
[2023-09-29] MEDS: Dronabinol 2.5 MG CAP PO SCH ×2 (11:38→17:51)
[2023-09-29] MEDS: DAPTOMYCIN IVPB SCH (17:35)
[2023-09-29] MEDS: SODIUM CHLORIDE 0.9% IVPB SCH (17:35)
[2023-09-29] MEDS: Rosuvastatin 20 MG TAB PO SCH (20:56)
[2023-09-29] MEDS: Mirtazapine 15 MG TAB PO SCH (20:56)
[2023-09-30 04:54] LABS: Hemoglobin 7.5 g/dL (14.0-18.0); Manual Diff?? YES; Mean Corpuscular HGB CONC 34.1 g/dL (32.0-36.0); Mean Corpuscular Hemoglobin 29.8 pg (27.0-31.0); Mean Corpuscular Volume 87.3 fl (78.0-98.0); Mean Platelet Volume 11.1 fL (7.4-10.4); RBC Distribution Width 14.6 % (11.5-14.5); Red Blood Cell (RBC) Count 2.52 mill/uL (4.70-6.10); White Blood Cell (WBC) Count 4.1 10x3/uL (4.8-10.8)
[2023-09-30 05:06] LABS: Delete Auto Diff?? YES; Platelet Count 9 10x3/uL (130-400)
[2023-09-30 05:22] LABS: ALT (SGPT) 92 U/L (8-55); AST (SGOT) 95 U/L (5-34); Albumin 2.4 g/dL (3.4-4.8); Alkaline Phosphatase 99 U/L (40-110); Anion Gap 16 mmol/L (10-20); BUN (Urea Nitrogen) 24 mg/dL (8.4-25.7); Bilirubin, Total 0.7 mg/dL (0.2-1.2); Calc. Creatinine Clearance 27 mL/min (70-130); Carbon Dioxide 20 mmol/L (23-31); Chloride 110 mmol/L (98-107); Estimated GFR 28; Globulin 3.2 g/dL (2.4-3.5); Glucose 215 mg/dL (83-110); Potassium 2.7 mmol/L (3.5-5.1); Protein, Total 5.6 g/dL (5.8-8.1); Sodium 143 mmol/L (136-145)
[2023-09-30 05:46] LABS: CellaVision Operator ID LAB.CLH1; Elliptocytes SLIGHT = 2-5 cells HPF (0-1); Hypochromia SLIGHT = 6-15 cells HPF (0-5); Lymphocytes 22 % (21-51); Monocytes 7 % (0-10); Neutrophil 1 % (42-75); Platelet Adequacy Comment Significant decrease; Polychromasia SLIGHT = 2-3 cells HPF (0-2); Reactive Lymphocytes 5 % (0-10); Total Cell Count 107
[2023-09-30] MEDS: HumaLOG 300 UNITS/3 ML VIAL SC PRN ×3 (06:06→17:58)
[2023-09-30] MEDS ORDERED: Potassium Chloride 20 MEQ TAB PO SCH ×4 (08:15→15:45)
[2023-09-30] MEDS: Fluconazole 100 MG TAB PO SCH (08:17)
[2023-09-30] MEDS: Atovaquone 750 MG/5 ML UDCUP PO SCH (08:17)
[2023-09-30] MEDS: Acyclovir 400 mg Tablet PO SCH (08:17)
[2023-09-30] MEDS: Dronabinol 2.5 MG CAP PO SCH ×2 (08:17→17:02)
[2023-09-30] MEDS ORDERED: Potassium Chloride 20 MEQ in Premix 1 BAG IVPB SCH ×3 (09:00→14:00)
[2023-09-30 12:51] LABS: Delete Auto Diff?? YES; Hematocrit 21.4 % (42.0-52.0); Hemoglobin 7.5 g/dL (14.0-18.0); Manual Diff?? YES; Mean Corpuscular Volume 85.6 fl (78.0-98.0); Mean Platelet Volume 11.2 fL (7.4-10.4); Platelet Count 40 10x3/uL (130-400); RBC Distribution Width 14.5 % (11.5-14.5); White Blood Cell (WBC) Count 4.5 10x3/uL (4.8-10.8)
[2023-09-30 13:16] LABS: Burr Cells SLIGHT = 2-5 cells HPF (0-1); CellaVision Operator ID LAB.KB; Lymphocytes 19 % (21-51); Monocytes 8 % (0-10); Neutrophil 1 % (42-75); Ovalocytes SLIGHT = 2-5 cells HPF (0-1); Platelet Adequacy Comment Platelets Decreased; Polychromasia SLIGHT = 2-3 cells HPF (0-2); Reactive Lymphocytes 6 % (0-10); Smudge Cells 3.6 %; Tear Drops SLIGHT = 2-5 cells HPF (0-1); Total Cell Count 112
[2023-09-30 13:17] LABS: Anion Gap 15 mmol/L (10-20); BUN (Urea Nitrogen) 27 mg/dL (8.4-25.7); Calc. Creatinine Clearance 26 mL/min (70-130); Calcium 9.1 mg/dL (7.8-10.44); Carbon Dioxide 23 mmol/L (23-31); Chloride 109 mmol/L (98-107); Estimated GFR 27; Glucose 256 mg/dL (83-110); Potassium 2.9 mmol/L (3.5-5.1); Sodium 144 mmol/L (136-145)
[2023-09-30 18:35] LABS: Potassium 3.2 mmol/L (3.5-5.1)
[2023-09-30] MEDS: Acetaminophen 325 MG TAB PO PRN (21:34)
[2023-09-30] MEDS: Cefepime 1 GM in Sodium Chloride 0.9% 100 ML IVPB SCH (21:35)
[2023-09-30] MEDS: Mirtazapine 15 MG TAB PO SCH (21:37)
[2023-09-30] MEDS: Potassium Bicarbonate/Cit Ac 25 MEQ TAB PO SCH (21:37)
[2023-09-30] MEDS: Rosuvastatin 10 MG TAB PO SCH (21:37)
[2023-10-01 05:11] LABS: Hematocrit 22.8 % (42.0-52.0); Hemoglobin 7.9 g/dL (14.0-18.0); Manual Diff?? YES; Mean Corpuscular HGB CONC 34.6 g/dL (32.0-36.0); Mean Corpuscular Hemoglobin 30.5 pg (27.0-31.0); Mean Platelet Volume 11.6 fL (7.4-10.4); RBC Distribution Width 14.6 % (11.5-14.5); Red Blood Cell (RBC) Count 2.59 mill/uL (4.70-6.10); White Blood Cell (WBC) Count 4.3 10x3/uL (4.8-10.8)
[2023-10-01 05:33] LABS: Delete Auto Diff?? YES; Platelet Count 28 10x3/uL (130-400)
[2023-10-01 05:40] LABS: Anion Gap 15 mmol/L (10-20); BUN (Urea Nitrogen) 29 mg/dL (8.4-25.7); Calc. Creatinine Clearance 26 mL/min (70-130); Calcium 9.3 mg/dL (7.8-10.44); Carbon Dioxide 22 mmol/L (23-31); Chloride 111 mmol/L (98-107); Estimated GFR 26; Glucose 263 mg/dL (83-110); Potassium 3.4 mmol/L (3.5-5.1); Sodium 145 mmol/L (136-145)
[2023-10-01] MEDS: Acetaminophen 325 MG TAB PO PRN ×2 (05:59→21:03)
[2023-10-01 06:32] LABS: Anisocytosis MODERATE=16-30 cells HPF (0-5); CellaVision Operator ID LAB.JMM; Lymphocytes 22 % (21-51); Monocytes 8 % (0-10); Ovalocytes SLIGHT = 2-5 cells HPF (0-1); Platelet Adequacy Comment Significant decrease; Polychromasia SLIGHT = 2-3 cells HPF (0-2); Reactive Lymphocytes 6 % (0-10); Smudge Cells 5.6 %
[2023-10-01] MEDS ORDERED: Potassium Bicarbonate/Cit Ac 20 MEQ TAB PO SCH (08:00)
[2023-10-01] MEDS: Fluconazole 100 MG TAB PO SCH (08:38)
[2023-10-01] MEDS: Dronabinol 2.5 MG CAP PO SCH ×2 (08:38→16:03)
[2023-10-01] MEDS: Potassium Bicarbonate/Cit Ac 25 MEQ TAB PO SCH ×2 (08:39→18:06)
[2023-10-01] MEDS: NS 0.9% w/ 20 MEQ KCL 1,000 ML/1,000 ML BAG IV SCH ×2 (08:39→23:52)
[2023-10-01] MEDS: Cefepime 1 GM in Sodium Chloride 0.9% 100 ML IVPB SCH ×2 (08:39→21:03)
[2023-10-01] MEDS: Acyclovir 400 mg Tablet PO SCH (08:40)
[2023-10-01] MEDS: Atovaquone 750 MG/5 ML UDCUP PO SCH (08:40)
[2023-10-01] MEDS: HumaLOG 300 UNITS/3 ML VIAL SC PRN ×2 (12:20→17:56)
[2023-10-01] MEDS: Mirtazapine 15 MG TAB PO SCH (21:03)
[2023-10-01] MEDS: Rosuvastatin 10 MG TAB PO SCH (21:03)
[2023-10-02] MEDS: Mirtazapine 15 MG TAB PO SCH (05:33)
[2023-10-02] MEDS: Rosuvastatin 10 MG TAB PO SCH (05:33)
[2023-10-02 08:12] VITALS: BP 148/58; TEMP 98.4
[2023-10-02] MEDS ORDERED: Fluconazole 100 MG TAB PO SCH (09:00)
[2023-10-02] MEDS: Cefepime 1 GM in Sodium Chloride 0.9% 100 ML IVPB SCH (09:48)
[2023-10-02] MEDS: Potassium Bicarbonate/Cit Ac 25 MEQ TAB PO SCH (09:49)
[2023-10-02] MEDS: Acyclovir 400 mg Tablet PO SCH (09:49)
[2023-10-02] MEDS: Atovaquone 750 MG/5 ML UDCUP PO SCH (09:55)
[2023-10-02] MEDS: Dronabinol 2.5 MG CAP PO SCH (09:55)
== END 2023-10-02 14:02 | disposition home or self-care (01) | DRG 64 ==
LOC: ERS 12:38 → 2SE 14:25 → MSONC 09-28 15:43
PROVIDERS: ADMIT Internal Medicine; ATTEND Family Medicine
PROC: 30233N1 Transfusion of Nonautologous Red Blood Cells into Peripheral Vein, Percutaneous Approach (ICD-10-PCS; 2023-09-17)
PROC: 3E03329 Introduction of Other Anti-infective into Peripheral Vein, Percutaneous Approach (ICD-10-PCS; 2023-09-21)
PROC: 6A551Z2 Pheresis of Platelets, Multiple (ICD-10-PCS; principal; 2023-09-23)
PROC: 30233R1 Transfusion of Nonautologous Platelets into Peripheral Vein, Percutaneous Approach (ICD-10-PCS; 2023-09-23)
DX: I63.81 Other cerebral infarction due to occlusion or stenosis of small artery (principal); A41.89 Other specified sepsis; D61.810 Antineoplastic chemotherapy induced pancytopenia; J18.9 Pneumonia, unspecified organism; I13.0 Hypertensive heart and chronic kidney disease with heart failure and stage 1 through stage 4 chronic kidney disease, or unspecified chronic kidney disease; G81.94 Hemiplegia, unspecified affecting left nondominant side; D61.818 Other pancytopenia; C92.02 Acute myeloblastic leukemia, in relapse; N17.9 Acute kidney failure, unspecified; D84.9 Immunodeficiency, unspecified; Z88.8 Allergy status to other drugs, medicaments and biological substances; E78.5 Hyperlipidemia, unspecified; Z51.5 Encounter for palliative care; Z95.1 Presence of aortocoronary bypass graft; Z98.890 Other specified postprocedural states; Z95.0 Presence of cardiac pacemaker; Z79.82 Long term (current) use of aspirin; Z79.899 Other long term (current) drug therapy; Z79.4 Long term (current) use of insulin; I50.9 Heart failure, unspecified; N18.30 Chronic kidney disease, stage 3 unspecified; I25.10 Atherosclerotic heart disease of native coronary artery without angina pectoris; Z11.52 Encounter for screening for COVID-19; T45.1X5A Adverse effect of antineoplastic and immunosuppressive drugs, initial encounter; N18.9 Chronic kidney disease, unspecified; E11.22 Type 2 diabetes mellitus with diabetic chronic kidney disease; D69.6 Thrombocytopenia, unspecified; R29.703 NIHSS score 3; E11.65 Type 2 diabetes mellitus with hyperglycemia; E87.5 Hyperkalemia; E87.6 Hypokalemia
CPT/HCPCS: 36415; 36416; 36430; 70450; 71045; 80048; 80053; 80061; 80076; 80202; 81001; 82550; 83036; 83735; 83880; 84145; 84484; 85025; 85060; 86850; 86900; 86901; 87040; 87077; 87086; 87149; 87186; 93306; 93880; C9113; J0692; J0878; J1815; J2405; J3370; J3370-JW; J3480; J3490; J7050; P9016; P9035; Q0167